=== PATIENT | male | born 1950 | race Caucasian/White ===

== ENCOUNTER 2021-01-22 10:57 | Day surgery (SDC) | payer MEDICARE ==
[2021-01-22] VITALS (9 sets, daily range): BP systolic 127–155; BP diastolic 55–67; PULSE 61–66; TEMP 97.6–98.7
[~2021-01-22] VITALS: Wt 83.6 kg
[2021-01-22 12:22] LABS: HEMATOCRIT 39.9 % (42.0-52.0); MEAN CELL VOLUME 92 fl (80.0-100.0); MEAN CORPUSCULAR HEMOGLOBIN 32 pg (27.0-31.0); MEAN CORPUSCULAR HGB CONC 35 g/dl (33.0-37.0); MEAN PLATELET VOLUME 9.7 fl (7.4-10.4); PLATELET COUNT 246 K/mm3 (130-400); RED BLOOD COUNT 4.32 M/mm3 (4.20-5.60); REDCELL DISTRIBUTION WIDTH-CV 12.8 % (11.5-14.5)
[2021-01-22 12:32] LABS: INR 1.1 (0.8-3.0); PROTHROMBIN TIME 11.9 SECONDS (9.7-12.8)
[2021-01-22 12:39] LABS: CALCIUM 9.5 mg/dL (8.4-10.2); CREATININE, serum 0.97 mg/dL (0.72-1.25); POTASSIUM 4.2 mmol/L (3.5-4.5)
--- NOTE | 2021-01-22 12:41 | NUR ---
Sean 10MLAS ORDERED BY dR Sosa GIVEN TO PT.
[2021-01-22] MEDS ORDERED: NORVASC 10MG10 MG PO (12:43)
[2021-01-22] MEDS ORDERED: BLACK CHERRY CONCENT PO (12:44)
[2021-01-22] MEDS ORDERED: ASPIRIN 81M81 MG/TA2 PO (12:44)
[2021-01-22] MEDS ORDERED: CALCIUM 600MG+D1 TAB PO (12:50)
[2021-01-22] MEDS ORDERED: EPIPEN 2-PAK1 MG/ML IM (12:50)
[2021-01-22] MEDS ORDERED: FISH OIL 1000MG1 CAP PO (12:51)
[2021-01-22] MEDS ORDERED: TAMBOCOR 1100 MG/TAB PO (12:51)
[2021-01-22] MEDS ORDERED: BENADRYL25 M2 PO (12:52)
[2021-01-22] MEDS ORDERED: FOLIC ACID0.8 MG PO (12:53)
[2021-01-22] MEDS ORDERED: LASIX 40MG TABL40 MG PO (12:53)
[2021-01-22] MEDS ORDERED: COLACE 100100 MG/CAP PO (12:54)
[2021-01-22] MEDS ORDERED: CHROMIUM PO (12:55)
[2021-01-22] MEDS ORDERED: NATURAL ODORLE400 MG PO (12:55)
[2021-01-22] MEDS ORDERED: GLUCOTROL 5M5 MG/TAB PO (12:56)
[2021-01-22] MEDS ORDERED: AVALIDE 12.5 MG1 TA1 PO (12:56)
[2021-01-22] MEDS ORDERED: METHOTREXA2.5 MG/TAB PO (12:57)
[2021-01-22] MEDS ORDERED: MAG-OX 400400 MG/TAB PO (12:57)
[2021-01-22] MEDS ORDERED: VIAGRA 25MG TAB25 MG PO (12:58)
[2021-01-22] MEDS ORDERED: CRESTOR20 MG PO (12:58)
[2021-01-22] MEDS ORDERED: VITAMINC1000TA PO (12:59)
[2021-01-22] MEDS ORDERED: VITAMIN B COMPL1 SGL PO (12:59)
[2021-01-22] MEDS ORDERED: SLO-NIACIN500 MG PO (12:59)
[2021-01-22] MEDS ORDERED: VITAMIND3 5000 PO (13:00)
[2021-01-22] MEDS ORDERED: VITAMIN A PO (13:00)
[2021-01-22] MEDS ORDERED: TURMERIC500 MG PO (13:01)
[2021-01-22] MEDS ORDERED: PROMETHAZINE D473 ML PO (13:01)
[2021-01-22] MEDS ORDERED: OMNICEF 300MG300 MG PO (13:02)
--- NOTE | 2021-01-22 13:08 | NUR ---
Pt to procedure,report to Cipriano Ba.
--- NOTE | 2021-01-22 13:47 | NUR ---
SEE MERGE FOR ALL MEDICATION ADMINISTRATION TIMES INTRA AND POST SEDATION ASSESSMENTS
--- NOTE | 2021-01-22 15:20 | NUR ---
PT ADMITTED FROM [employer] VIA BED ACCOMPANIED BY RN. PT ORIENTED TO ROOM AND UNIT ROUTINES.PMM INCSION SITE CLEAN DRY AND INTACT ICE APPLIED TO SITE. PT INSTRUCTED TO TO REMAIN ON BEDREST FOR 2HRS.
--- NOTE | 2021-01-22 19:00 | NUR ---
RECEIVED CHANGE OF SHIFT REPORT FROM DAY SHIFT RN.
[2021-01-23 05:07] VITALS: BP 154/58; PULSE 64; TEMP 97.5
--- NOTE | 2021-01-23 07:14 | NUR ---
CHANGE OF SHIFT REPORT GIVEN TO DAY SHIFT RNGABY. PATIENT UP IN ROOM INDEPENDENTLY WITH NO REPORT CONCERNS OR PROBLEMS REPORTED. CONTINUES TO WEAR SLING.
[2021-01-23 07:51] VITALS: BP 133/51; PULSE 65; TEMP 98.2
--- NOTE | 2021-01-23 08:34 | NUR ---
Patient sitting up in bed upon entering the room. Patient is ready to discharge. Only c/o mild soreness at the site of pacemaker placement.
[2021-01-23 08:43] LABS: HEMATOCRIT 38.7 % (42.0-52.0); HEMOGLOBIN 13.4 g/dl (13.5-18.0); MEAN CELL VOLUME 94 fl (80.0-100.0); MEAN CORPUSCULAR HEMOGLOBIN 33 pg (27.0-31.0); MEAN CORPUSCULAR HGB CONC 35 g/dl (33.0-37.0); MEAN PLATELET VOLUME 9.7 fl (7.4-10.4); PLATELET COUNT 216 K/mm3 (130-400); RED BLOOD COUNT 4.12 M/mm3 (4.20-5.60); REDCELL DISTRIBUTION WIDTH-CV 12.9 % (11.5-14.5)
[2021-01-23 09:07] LABS: CALCIUM 9.2 mg/dL (8.4-10.2); CREATININE, serum 1.01 mg/dL (0.72-1.25); POTASSIUM 4.2 mmol/L (3.5-4.5)
[2021-01-23] MEDS ORDERED: TOPROL XL 25MG25 MG PO (10:11)
--- NOTE | 2021-01-23 10:26 | NUR ---
Initial visit; Patient thanked Glass Sander Belt for looking in on him and offering God's blessings.
--- NOTE | 2021-01-23 11:02 | NUR ---
Patient discharged and escorted out by [facility]. Patient has no complaints/concerns at time of discharge.
== END 2021-01-23 11:00 | disposition home or self-care (01) ==
LOC: COL.CAR 10:57 → MEDICAL 15:18 → COL.CAR 01-23 11:00
PROVIDERS: Internal Medicine Cardiovascular Disease
DX: I49.5 Sick sinus syndrome (principal); I48.91 Unspecified atrial fibrillation; E11.9 Type 2 diabetes mellitus without complications; E78.5 Hyperlipidemia, unspecified; I10 Essential (primary) hypertension; I49.3 Ventricular premature depolarization; R00.2 Palpitations; E78.00 Pure hypercholesterolemia, unspecified; F17.210 Nicotine dependence, cigarettes, uncomplicated; Z79.82 Long term (current) use of aspirin; Z79.899 Other long term (current) drug therapy; Z79.84 Long term (current) use of oral hypoglycemic drugs; Z83.3 Family history of diabetes mellitus; Z82.3 Family history of stroke
CPT/HCPCS: OP; C1785; C1894; C1898; J0690; J2250; J3010; J7030; Q9967

== ENCOUNTER 2022-03-22 07:29 | Observation (INO) | payer MEDICARE, OTHER ==
[~2022-03-22] VITALS: Ht 162.6 cm; Wt 70.1 kg
[2022-03-22] VITALS (15 sets, daily range): BP systolic 113–151; BP diastolic 42–65; PULSE 63–90; TEMP 97.6–98.4
[~2022-03-22 07:29] MED LIST: ASPIRIN 81M81 MG/TA2 PO; AVALIDE 12.5 MG1 TA1 PO; BENADRYL25 M2 PO; BLACK CHERRY CONCENT PO; CALCIUM 600MG+D1 TAB PO; CHROMIUM PO; COLACE 100100 MG/CAP PO; CRESTOR20 MG PO; EPIPEN 2-PAK1 MG/ML IM; FISH OIL 1000MG1 CAP PO; FOLIC ACID0.8 MG PO; GLUCOTROL 5M5 MG/TAB PO; LASIX 40MG TABL40 MG PO; MAG-OX 400400 MG/TAB PO; METHOTREXA2.5 MG/TAB PO; NATURAL ODORLE400 MG PO; NORVASC 10MG10 MG PO; OMNICEF 300MG300 MG PO; PROMETHAZINE D473 ML PO; SLO-NIACIN500 MG PO; TAMBOCOR 1100 MG/TAB PO; TOPROL XL 25MG25 MG PO; TURMERIC500 MG PO; VIAGRA 25MG TAB25 MG PO; VITAMIN A PO; VITAMIN B COMPL1 SGL PO; VITAMINC1000TA PO; VITAMIND3 5000 PO
[2022-03-22 08:23] LABS: HEMOGLOBIN 10.8 g/dl (13.5-18.0); MEAN CELL VOLUME 93 fl (80.0-100.0); MEAN CORPUSCULAR HEMOGLOBIN 31 pg (27-31); MEAN CORPUSCULAR HGB CONC 34 g/dl (33.0-37.0); RED BLOOD COUNT 3.45 M/mm3 (4.20-5.60); REDCELL DISTRIBUTION WIDTH-CV 14.5 % (11.5-14.5)
[2022-03-22 08:40] LABS: ALBUMIN 3.5 gm/dL (3.4-4.8); BILIRUBIN,TOTAL 1.2 mg/dL (0.2-1.2); CALCIUM 10.9 mg/dL (8.4-10.2); CREATININE, serum 1.24 mg/dL (0.72-1.25); POTASSIUM 5.2 mmol/L (3.5-4.5); TOTAL PROTEIN 6.8 gm/dL (6.2-8.1)
[2022-03-22 09:33] LABS: BAND 2 % (0-10); BASOPHIL 1 % (0-2); LYMPHOCYTE 23 % (20.0-51.0); NEUTROPHILS 70 % (42.0-75.2); NUCLEATED RED BLOOD CELL 13 (0-6)
[2022-03-22 09:34] LABS: POLYCHROMASIA 1+
[2022-03-22 09:35] LABS: PLATELET ESTIMATE DECREASED (NORMAL)
[2022-03-22 09:40] LABS: HEMATOCRIT 31.9 % (42.0-52.0)
--- NOTE | 2022-03-22 09:42 | NUR ---
CRITICAL VALUE CALLED FROM LAB: PLATELETS 7 DR. YE IS ALREADY AWARE.
[2022-03-22 10:21] LABS: PLATELET COUNT 7 K/mm3 (130-400)
--- NOTE | 2022-03-22 18:00 | NUR ---
Patient admitted to room 309 from PACU. Report recieved from BRUNO Segovia. Admission assessment and admission paperwork completed. Pharmacy and allergies reviewed. Patient not fully aware of what medications he takes at home, will request medications from pharmacy. 1 unit of platelets transfused, patient tolerated well. VSS. Patient A&O. Fentanyl patch placed on right shoulder. PRN ellis given for "nagging" back pain. Patient currently resting in bed. Denies any further pain, discomfort, ARELIS, or further needs at this time. Call light in reach. Family at the bedside.
[2022-03-23] VITALS (10 sets, daily range): BP systolic 123–150; BP diastolic 45–88; PULSE 55–93; TEMP 97.4–98.5
[2022-03-23 06:26] LABS: MEAN CELL VOLUME 91 fl (80.0-100.0); MEAN CORPUSCULAR HGB CONC 35 g/dl (33.0-37.0); MEAN PLATELET VOLUME 12.4 fl (7.4-10.4); RED BLOOD COUNT 2.96 M/mm3 (4.20-5.60); REDCELL DISTRIBUTION WIDTH-CV 14.4 % (11.5-14.5)
[2022-03-23 06:36] LABS: HEMOGLOBIN 9.4 g/dl (13.5-18.0); MEAN CORPUSCULAR HEMOGLOBIN 32 pg (27-31)
[2022-03-23 06:39] LABS: PLATELET COUNT 19 K/mm3 (130-400)
[2022-03-23 06:58] LABS: CALCIUM 9.5 mg/dL (8.4-10.2); CREATININE, serum 0.81 mg/dL (0.72-1.25); POTASSIUM 4.2 mmol/L (3.5-4.5)
[2022-03-23 07:46] LABS: BAND 13 % (0-10); LYMPHOCYTE 28 % (20.0-51.0); NEUTROPHILS 50 % (42.0-75.2); NUCLEATED RED BLOOD CELL 12 (0-6)
[2022-03-23 07:47] LABS: PLATELET ESTIMATE DECREASED (NORMAL); POLYCHROMASIA 2+
[2022-03-23] MEDS ORDERED: ROXICODONE 55 MG/TAB PO (08:58)
[2022-03-23] MEDS ORDERED: FENTANYL 12MCG TD (08:58)
--- NOTE | 2022-03-23 09:55 | NUR ---
PT AWAKE AND ALERT, COMPLAINTS OF ANXIETY THIS AM, ANXIOUS TO GET PLATELET INFUSION AND GO HOME. BLOOD BANK CALLED FOR UPDATE ON ETA FOR PLT - ESTIMATING ARRIVAL THIS AFTERNOON. PT'S FAMILY IN ROOM, PRESENT AT TIME OF ROUNDS.
--- NOTE | 2022-03-23 13:24 | NUR ---
Initial visit: Pt was sitting in his chair with and daughter by his side. Pt was close to discharge. Pt has no needs right now. Physical Science Technician will follow up as needed.
--- NOTE | 2022-03-23 15:00 | NUR ---
PLATELET TRANSFUSION COMPLETE, NO REACTION NOTED, VSS. IV REMOVED, BELONGINGS PACKED. PT DISCHARGED TO HOME WITH AND DAUGHTER. PT EDUCATED ON DISCHARGE INSTRUCTIONS AND NEW MEDICATIONS. PT AND FAMILY VERBALIZED UNDERSTANDING.
== END 2022-03-23 15:01 | disposition home health service (06) ==
LOC: SDCO 07:29 → MEDICAL 10:48
PROVIDERS: Internal Medicine; Physician Assistant; ADMIT Internal Medicine
DX: C96.9 Malignant neoplasm of lymphoid, hematopoietic and related tissue, unspecified (principal); D63.0 Anemia in neoplastic disease; D69.6 Thrombocytopenia, unspecified; G89.3 Neoplasm related pain (acute) (chronic); E87.1 Hypo-osmolality and hyponatremia; E87.5 Hyperkalemia; E83.52 Hypercalcemia; E78.5 Hyperlipidemia, unspecified; E11.9 Type 2 diabetes mellitus without complications; I10 Essential (primary) hypertension; I48.91 Unspecified atrial fibrillation; R74.02 Elevation of levels of lactic acid dehydrogenase [LDH]; F17.210 Nicotine dependence, cigarettes, uncomplicated; Z79.899 Other long term (current) drug therapy; Z79.84 Long term (current) use of oral hypoglycemic drugs; Z95.0 Presence of cardiac pacemaker; Z28.310 Unvaccinated for COVID-19; Z28.9 Immunization not carried out for unspecified reason
CPT/HCPCS: G0378; J1815; J2704; J3010; J7030; J7512; P9035